=== PATIENT | female | born 1965 | race Caucasian/White ===

== ENCOUNTER → 2020-03-20 | Outpatient (CLI) | payer MEDICARE ==
[~2020-03-20] MED LIST: ALPR1TAB6 PO; BUSP10TA PO; CIPR500T94 PO; CITA20TA6 PO; DOCU-109 PO; LISI1TAB20 PO; METO50TA6 PO; METR500T PO; MULT-505 PO; RISP1TAB3 PO
--- NOTE | 2020-03-23 08:36 | RAD ---
DATE: 03/20/2020 EXAM: MAMMO NITZA SCREENING BILATERAL HISTORY: Screening COMPARISON: 02/03/2019, 02/21/2014 This study was interpreted with the benefit of Computerized Aided Detection (CAD). Breast Density: SCATTERED The breast parenchyma shows scattered fibroglandular densities. Breast parenchyma level B. FINDINGS: No mass, suspicious calcification, or architectural distortion in either breast. IMPRESSION: No evidence of malignancy. BI-RADS CATEGORY: 1 NEGATIVE RECOMMENDED FOLLOW-UP: 12M 12 MONTH FOLLOW-UP PQRS compliance statement: Patient information was entered into a reminder system with a target due date for the next mammogram. Mammography is a sensitive method for finding small breast cancers, but it does not detect them all and is not a substitute for careful clinical examination. A negative mammogram does not negate a clinically suspicious finding and should not result in delay in biopsying a clinically suspicious abnormality. "Our facility is accredited by the [employer] Mammography Program."
== END ==
LOC: MAMMO 09:31
PROVIDERS: ATTEND Family Medicine
DX: Z12.31 Encounter for screening mammogram for malignant neoplasm of breast (principal)
CPT/HCPCS: 77063; 77067

== ENCOUNTER → 2020-07-10 | Outpatient (CLI) | payer MEDICARE ==
[~2020-07-10] MED LIST changes: +IOHEXOL 240 MG/ML 50ML VIAL. ONE; +IOHEXOL 300 MG/ML 75 ML VIAL. IV ONE; -RISP1TAB3 PO; +RISP1TAB88 PO
--- NOTE | 2020-07-10 12:05 | RAD ---
EXAM: CT Abdomen and Pelvis with IV contrast CLINICAL HISTORY: Left lower quadrant pain COMPARISON: 10/15/2013 TECHNIQUE: Helical CT of the abdomen and pelvis was performed following the administration of intrave nous contrast. Axial, coronal and sagittal reformatted images were generated. PQRS compliance statement - One or more of the following individualized dose reduction techniques wer e utilized for this study: 1. Automated exposure control 2. Adjustment of the mA and/or kV according to patient size 3. Use of iterative reconstruction technique FINDINGS: Lower Chest: Lung bases are clear. Abdomen and Pelvis: No focal liver lesion. Gallbladder sludge. Gallbladder is otherwise unremarkable. No biliary ductal d ilatation. Pancreas is unremarkable. Spleen and adrenal glands are normal. Right interpolar cortical calcification is seen with associated scarring. No hydronephrosis or hydroureter. Bladder is unremark able. Moderate colonic stool content is seen. No small or large bowel dilatation. No bowel obstruction. Elke endix is normal. No abdominal or pelvic ascites. No abdominal or pelvic lymphadenopathy. Trace fat-containing periumbi lical hernia. Aorta is normal in caliber. Bones: Degenerative changes of spine are seen. Sclerotic appearance of the femoral heads bilaterally likely femoral head osteonecrosis. No collapse. IMPRESSION: 1. No bowel obstruction. Moderate colonic stool content is seen. 2. Gallbladder sludge is seen. No CT evidence for acute cholecystitis. 3. Serpentine sclerotic appearance of the femoral heads bilaterally likely femoral head osteonecrosi s without collapse. Electronically signed by: Ren Griffin MD (07/10/2020 12:03 PM) [id number]
== END ==
LOC: CT 08:13
PROVIDERS: ATTEND Family Medicine
DX: R10.32 Left lower quadrant pain (principal); K92.1 Melena
CPT/HCPCS: 74177; Q9967

== ENCOUNTER → 2021-04-12 | Outpatient (CLI) | payer MEDICARE ==
[~2021-04-12] MED LIST changes: -IOHEXOL 240 MG/ML 50ML VIAL. ONE; -IOHEXOL 300 MG/ML 75 ML VIAL. IV ONE; -LISI1TAB20 PO; +LISI1TAB39 PO
--- NOTE | 2021-04-12 12:24 | RAD ---
History: 54-year-old asymptomatic female patient presents for routine screening mammogram. PROCEDURE: 3-D tomosynthesis was performed of the breasts bilaterally. 2-D C-view craniocaudal and mediolateral oblique digital mammograms were also generated. The images were also evaluated with [employer] puter-aided detection and the CAD results were analyzed. Previous: Bilateral mammogram from 03/20/2020 and priors. FINDINGS: Density level B: There are scattered fibroglandular densities. There are no suspicious masses, suspic ious microcalcifications or areas of architectural distortion.Benign stable glandular nodularities a re seen in both breasts IMPRESSION: Negative mammogram. Patient information was entered into the [employer] reminder system with a target due date for the next screening mammogram . Routine annual screening mammogram in one year advised. BI-RADS Category 1: Negative. A mammogram does not have 100% sensitivity and therefore a negative imaging study should not delay fu rther work up of a suspicious abnormality. PQRS compliance statement: Patient information was entered into the [employer] reminder system with a ta rget due date for the next screening mammogram . Routine annual screening mammogram in one year advis ed. "Our facility is accredited by the [employer] Mammography [employer]." Electronically signed by: Pauline Suresh MD (04/12/2021 12:22 PM) [id number]
== END ==
LOC: MAMMO 10:54
PROVIDERS: ATTEND Family Medicine
DX: Z12.31 Encounter for screening mammogram for malignant neoplasm of breast (principal)
CPT/HCPCS: 77063; 77067